=== PATIENT | female | born 1930 | race Two or more races ===

== ENCOUNTER 2019-01-17 19:00 | Emergency (ER) | payer OTHER ==
[~2019-01-17] VITALS: Ht 162.6 cm; Wt 61.2 kg
[~2019-01-17 19:00] MED LIST: ATENOLOL50 MG; HYZAAR 100-121 UDTAB; PROCARDIA90 MG/BLIS
[2019-01-17] MEDS ORDERED: CARVEDILOL ER40 MG PO (19:24)
[2019-01-17] MEDS ORDERED: PLAVIX75 MG (19:25)
[2019-01-17] MEDS ORDERED: CATAPRES0.1 MG (19:25)
[2019-01-17] MEDS ORDERED: ADALAT CC90 MG (19:25)
[2019-01-17] MEDS ORDERED: ECOTRIN81 MG (19:25)
[2019-01-17] MEDS ORDERED: LASIX20 MG (19:26)
== END 2019-01-17 22:12 | disposition home or self-care (01) ==
LOC: ER 19:00
DX: S01.82XA Laceration with foreign body of other part of head, initial encounter (principal); S62.291A Other fracture of first metacarpal bone, right hand, initial encounter for closed fracture; W18.09XA Striking against other object with subsequent fall, initial encounter; Y93.89 Activity, other specified; Y92.59 Other trade areas as the place of occurrence of the external cause; Y99.8 Other external cause status